=== PATIENT | male | born 1960 | race American Indian/Alaskan Native ===

== ENCOUNTER 2017-06-12 07:52 | Emergency (ER) | payer BC ==
[~2017-06-12] VITALS: Ht 154.9 cm; Wt 63.2 kg
[2017-06-12 08:03] VITALS: BP 141/78
--- NOTE | 2017-06-12 08:06 | NUR ---
PATIENT PRESENTS TO ED WITH ABSCESS BACK OF NECK . PT STATES . DENIES N/V/D; SKIN IS PINK/WARM/DRY; AAOX4 WITH EVEN AND STEADY GAIT; LUNGS CLEAR BL; HR EVEN AND REGULAR; PT DENIES ANY FEVER, CP, SOB, OR COUGH AT THIS TIME; PATIENT STATES PAIN OF 8/10 AT THIS TIME; VSS; PATIENT POSITIONED FOR COMFORT; HOB ELEVATED; BEDRAILS UP X2; BED DOWN. ER MD MADE AWARE OF PT STATUS.
--- NOTE | 2017-06-12 08:06 | NUR ---
PATIENT AMBULATED TO ER BED 5.
--- NOTE | 2017-06-12 08:19 | NUR ---
PATIENT BEING EVALUATED BY DR. ALVARADO.
[2017-06-12] MEDS ORDERED: LIDOCAINE 1% 500 MG/50 ML VIAL INJ ONE (08:20)
[2017-06-12] MEDS ORDERED: LIDOCAINE 1% ED 50 ML ONE (08:29)
--- NOTE | 2017-06-12 08:41 | NUR ---
Patient discharged with v/s stable. Written and verbal after care instructions given and explained. Patient alert, oriented and verbalized understanding of instructions. Ambulatory with steady gait. All questions addressed prior to discharge. ID band removed. Patient advised to follow up with PMD. Rx of KEFLEX,BACTRIM,MOTRIN given. Patient educated on indication of medication including possible reaction and side effects. Opportunity to ask questions provided and answered.
--- NOTE | 2017-06-12 08:42 | NUR ---
CLEAN DRESSING APPLIED
[2017-06-12 08:43] VITALS: BP 141/78
== END 2017-06-12 08:41 | disposition home or self-care (01) ==
LOC: MED 07:52
DX: L02.11 Cutaneous abscess of neck (principal); R03.0 Elevated blood-pressure reading, without diagnosis of hypertension
CPT/HCPCS: 10060; 99283; J2001

== ENCOUNTER 2017-06-14 07:56 | Emergency (ER) | payer BC ==
[~2017-06-14] VITALS: Ht 152.4 cm; Wt 64.4 kg
[2017-06-14 08:00] VITALS: BP 141/73
--- NOTE | 2017-06-14 08:58 | NUR ---
PATIENT TO BED 5 AT THIS TIME.
--- NOTE | 2017-06-14 09:07 | NUR ---
56 M BIB SELF FOR WOUND CHECK UP; PT HAD AN I&D DONE 06/12/17 TO ABSCESS ON POSTERIOR OF NECK; DENIES N/V/D; SKIN IS PINK/WARM/DRY; AAOX4 WITH EVEN AND STEADY GAIT; LUNGS CLEAR BL; HR EVEN AND REGULAR; PT DENIES ANY FEVER, CP, SOB, OR COUGH AT THIS TIME; VSS; PATIENT POSITIONED FOR COMFORT; HOB ELEVATED; BEDRAILS UP X2; BED DOWN. ER MD MADE AWARE OF PT STATUS.
--- NOTE | 2017-06-14 09:11 | NUR ---
SECHRIST BY BEDSIDE
--- NOTE | 2017-06-14 09:39 | NUR ---
Patient discharged with v/s stable. Written and verbal after care instructions given and explained. Patient verbalized understanding. Carried with steady gait. All questions addressed prior to discharge. Advised to follow up with PMD.
[2017-06-14 09:41] VITALS: BP 122/74
== END 2017-06-14 09:39 | disposition home or self-care (01) ==
LOC: MED 07:56
DX: Z48.01 Encounter for change or removal of surgical wound dressing (principal)
CPT/HCPCS: 99281